=== PATIENT | male | born 1930 | race African-American/Black ===

== ENCOUNTER 2018-07-02 10:05 | Emergency (ER) | payer OTHER ==
[~2018-07-02] VITALS: Ht 185.4 cm; Wt 65.0 kg
[2018-07-02] MEDS ORDERED: SODIUM CHLORIDE 0.9% 1,000 ML IV ONE (11:24)
[2018-07-02 12:26] LABS: CHLORIDE 106 mEq/L (98-107)
[2018-07-02 12:34] LABS: INR 1.2
[2018-07-02 13:28] LABS: BASOPHILS % 0.3 % (0.0-2.0); HEMATOCRIT. 43.4 % (42.0-52.0); HEMOGLOBIN. 14.3 g/dL (14.0-18.0); LYMPHOCYTES % 32.3 % (20.0-50.0); MEAN CORPUSCULAR HEMOGLOBIN 29.7 pg (28.0-32.0); MEAN CORPUSCULAR VOLUME 90.3 fL (80.0-94.0); MEAN PLATELET VOLUME 8.9 fl (7.4-10.4); NEUTROPHILS % 62.4 % (40.0-76.0); PLATELET 89 x1000/uL (130-400); RED CELL DISTRIBUTION WIDTH 14.8 % (11.6-14.6)
[2018-07-02 13:31] LABS: CLARITY URINE CLEAR (CLEAR); COLOR URINE YELLOW (YELLOW); KETONES URINE TRACE (NEGATIVE); LEUKOCYTE ESTERASE URINE 1+ (NEGATIVE); NITRITE URINE NEGATIVE (NEGATIVE); OCCULT BLOOD URINE NEGATIVE (NEGATIVE); PROTEIN URINE NEGATIVE (NEGATIVE); SPECIFIC GRAVITY URINE 1.024 (1.005-1.030)
[2018-07-02] MEDS ORDERED: CEFTRIAXONE 1 G PREMIX 50 ML IV ONE (14:30)
[2018-07-02] MEDS ORDERED: CEFUROXIME AXETIL 250MG TABLET PO ONE (15:15)
[2018-07-02 16:33] VITALS: BP 118/68
== END 2018-07-02 16:35 | disposition home or self-care (01) ==
LOC: ER 10:05
DX: N39.0 Urinary tract infection, site not specified (principal); R62.7 Adult failure to thrive; I11.9 Hypertensive heart disease without heart failure; F03.90 Unspecified dementia, unspecified severity, without behavioral disturbance, psychotic disturbance, mood disturbance, and anxiety
CPT/HCPCS: 36415; 80053; 81003; 83690; 85025; 85610; 96360; 96361; 99285; J0696; J7030